=== PATIENT | female | born 1960 | race Caucasian/White ===

== ENCOUNTER 2017-02-10 16:42 | Emergency (ER) | payer OTHER ==
[~2017-02-10] VITALS: Ht 157.5 cm; Wt 63.6 kg
[2017-02-10 16:47] VITALS: Ht 157.5 cm; Wt 63.6 kg
[2017-02-10] MEDS ORDERED: HYDROCODONE/APAP (5/325) TAB PO ONE (19:00)
--- NOTE | 2017-02-10 19:16 | ERD ---
ER Documentation Chief Complaint Date/Time DATE: 02/10/17 TIME: 19:13 Chief Complaint BROUGHT IN VIA EMS DUE TO MECHANICAL FALL AND C/O BACK PAIN HPI This 56-year-old female who presents the emergency department today with her friend from [employer] complaining of headache, neck pain, back pain and right shoulder pain after sustaining a fall earlier this evening. Patient was at a restaurant when she slipped on a grape and fell backwards and hit her head. Denies any loss of consciousness or nausea or vomiting however she states she feels dizzy. She has not taken any medication for the pain. Denies any fevers or chills, blurred vision ROS All systems reviewed and are negative except as per history of present illness. Medications Home Meds Active Scripts Acetaminophen* (Tylophen*) 500 Mg Capsule, 1 CAP PO Q6H Y for PAIN AND OR ELEVATED TEMP, #30 CAP Prov:MCKINLEY RITCHIE PA-C 02/10/17 Tramadol HCl (Tramadol HCl) 50 Mg Tablet, 50 MG PO Q4 Y for PAIN, #20 TAB Prov:MCKINLEY RITCHIE PA-C 02/10/17 PMhx/Soc Medical and Surgical Hx: pt denies Medical Hx, pt denies Surgical Hx History of Surgery: No Anesthesia Reaction: No Hx Neurological Disorder: No Hx Respiratory Disorders: No Hx Cardiac Disorders: No Hx Psychiatric Problems: No Hx Miscellaneous Medical Probl: No Hx Alcohol Use: No Hx Substance Use: No Hx Tobacco Use: No Smoking Status: Never smoker Physical Exam Vitals Vital Signs Date Time Temp Pulse Resp B/P Pulse Ox O2 Delivery O2 Flow Rate FiO2 02/10/17 16:47 98.2 76 14 132/74 98 Physical Exam Const: Sitting in wheelchair, no acute distress Head: Atraumatic. No evidence of hematoma Eyes: Normal Conjunctiva. Right eye with pupillary dilation. Left eye PERRLA. EOM intact. ENT: Ears TMs normal. No hemotympanum. Nose no epistaxis. Throat no erythema no exudate Neck: Full range of motion..~ No meningismus. Tenderness palpation midline and bilateral paraspinal Resp: Clear to auscultation bilaterally Cardio: Regular rate and rhythm, no murmurs Abd: Soft, non tender, non distended. Normal bowel sounds Skin: No petechiae or rashes Back: Thoracic and lumbar spine midline tenderness and bilateral paraspinals. Pulses 2+. Distal neurovascularly intact. MSK: Right shoulder no obvious deformity. No effusion. No ecchymosis. Tenderness palpation diffusely over right shoulder. Nontender humerus. Full active range of motion with pain. Pulses 2+. Distal neurovascularly intact. Neur: Awake and alert Psych: Normal Mood and Affect Results 24 hrs Current Medications Medications (Trade) Dose Ordered Sig/Wendy Route PRN Reason Start Time Stop Time Status Last Admin Dose Admin Acetaminophen/ Hydrocodone Bitart (Beasley (5/325)) 1 tab ONCE ONCE PO 02/10/17 19:00 02/10/17 19:01 DC 02/10/17 19:06 DIAGNOSTIC IMAGING REPORT Patient: YESSY MCADAMS : 1960 Age: 56 Sex: F MR #: [id number] DOS: 02/10/17 0000 Ordering MD: MCKINLEY RITCHIE PA-C Location: [facility] Room/Bed: PROCEDURE: CT Brain without contrast. CLINICAL INDICATION: Pain status post trauma TECHNIQUE: A CT of the brain was performed on a [employer] 64-slice CT scanner utilizing axial imaging from the skull base through the vertex without IV contrast. Multiplanar reformatted images were made. Images were reviewed on a PACS workstation. The CTDIvol is 44.19 mGy and the DLP is 720.23 mGycm. One of the following 3 dose reduction techniques were used: Automated exposure control; adjustment of the mA and/or kV according to patient size; or use of iterative reconstruction technique. COMPARISON: None available FINDINGS: There is no intracranial hemorrhage, mass effect, or midline shift. No extra- axial fluid collection is seen. The ventricles and sulci are normal in size and configuration. The density of the brain is normal, and the aguilar white matter differentiation appears well-preserved. The visualized scalp and calvarium are normal. The bilateral orbits are are remarkable for a normal left lens and degenerative right lens and correlate with prior cataract surgery. 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 The bilateral paranasal sinuses, mastoid air cells and middle ear cavities are clear. IMPRESSION: 1. No evidence of acute intracranial hemorrhage, infarcts or acute intracranial pathology. 2. Normal noncontrast brain CT. RPTAT: HDC .Debbie Vanessa MD, Date Time Electronically viewed and signed by .Debbie Vanessa MD, MD on 02/10/2017 19: 25 .C/ CC: MCKINLEY RITCHIE PA-C DIAGNOSTIC IMAGING REPORT Patient: YESSY MCADAMS : 1960 Age: 56 Sex: F MR #: [id number] DOS: 02/10/17 0000 Ordering MD: MCKINLEY RITCHIE PA-C Location: [facility] Room/Bed: PROCEDURE: XR Lumbar Spine. CLINICAL INDICATION: Trauma due to a fall. Back pain. TECHNIQUE: Three views. AP, lateral and cone-down lateral view of the lumbar spine were obtained. COMPARISON: No prior studies are available for comparison. FINDINGS: There is grade 1 anterolisthesis at L4-5 measuring 0.6 cm. Alignment is otherwise normal. There is no fracture. There is no lytic or blastic lesion. There are degenerative changes with hypertrophy of the facet joints at L4-5 and L5-S1. Surgical clips are present in the right upper quadrant of the abdomen. IMPRESSION: 1. Grade 1 anterolisthesis at L4-5 measuring 0.6 cm. 2. Degenerative changes L4-5 and L5-S1. 3. Prior right upper quadrant abdomen surgery. 4. No fracture. RPTAT: QQ .Ja Olivo MD, MD Date Time Electronically viewed and signed by .Ja Olivo MD, on 02/10/2017 20:15 .R/ CC: MCKINLEY RITCHIE PA-C DIAGNOSTIC IMAGING REPORT Patient: YESSY MCADAMS : 1960 Age: 56 Sex: F MR #: [id number] DOS: 02/10/17 0000 Ordering MD: MCKINLEY RITCHIE PA-C Location: [facility] Room/Bed: PROCEDURE: XR Right Shoulder. CLINICAL INDICATION: Trauma due to a fall. Right shoulder pain. TECHNIQUE: Three views. Frontal internal rotation, frontal external rotation , and oblique. COMPARISON: No prior study is available for comparison. FINDINGS: There is no fracture or dislocation. The soft tissues are normal. Articular surfaces are intact. There is no lytic or blastic lesion. There is no radiopaque foreign body. IMPRESSION: 1. Normal images of the right shoulder. RPTAT: QQ .aJ Olivo MD, Date Time Electronically viewed and signed by .Ja Olivo MD, on 02/10/2017 20:15 DIAGNOSTIC IMAGING REPORT Patient: YESSY MCADAMS : 1960 Age: 56 Sex: F MR #: [id number] DOS: 02/10/17 0000 Ordering MD: MCKINLEY RITCHIE PA-C Location: [facility] Room/Bed: PROCEDURE: XR Thoracic Spine. CLINICAL INDICATION: Trauma due to a fall. Back pain. TECHNIQUE: Three views. Frontal, lateral, and lateral swimmers. COMPARISON: None available FINDINGS: There is normal stature and alignment of the vertebrae. There is no fracture. There is no lytic or blastic lesion. The disk height is normal throughout. Mild degenerative changes with small osteophytes are present in the mid thoracic spine. Surgical clips are present in the right upper quadrant of the abdomen. IMPRESSION: 1. Mild degenerative changes of the mid thoracic spine. 2. Prior right upper quadrant abdomen surgery. 3. Otherwise unremarkable images of the thoracic spine. RPTAT: QQ .Ja Olivo MD, Date Time Electronically viewed and signed by .Ja Olivo MD, on 02/10/2017 20:16 .R/ CC: MCKINLEY RITCHIE PA-C Procedures/MDM This a 56-year-old female who presented to the emergency department today complaining of headache, back pain and right shoulder pain after a mechanical fall earlier this evening. On physical exam patient's right pupil was dilated. Patient was unsure if this was abnormal for her or not. Given patient's complaint of dizziness, hitting her head and her abnormal pupil I did obtain a head CT as well as a cervical spine CT and plain films of the thoracic, lumbar spine and right shoulder Head CT noncontrast shows no evidence of acute intracranial hemorrhage, infarcts or intracranial pathology there is no mass-effect or midline shift Cervical spine CT shows mild degenerative changes of the facet joints at C6 and 7 and C7 and T1 on the right and C5 and 6 and 6 and 7 on the left. There is no fracture dislocation. Right shoulder is unremarkable Thoracic spine shows mild degenerative changes of the midthoracic spine. There are small osteophytes present. There is prior right upper quadrant abdomen surgery. Otherwise unremarkable Lumbar spine images show grade 1 anterolisthesis at L4 and 5 measuring 0.6 cm. There are degenerative changes at L4 and 5 and L5 and S1. Alignment is otherwise normal there is no acute fracture dislocation. Patient symptoms at this time is consistent with strain versus sprain versus contusion secondary to mechanical fall She was given Beasley here in the emergency department. Patient will be given a prescription for tramadol and Tylenol for home At this time the patient is stable for discharge and outpatient management. Patient should follow up with their PCP in the next 1-2 days. They may return to the emergency department sooner for any persistent or worsening of symptoms. Patient understood and agreed with the plan. Departure Diagnosis: Primary Impression: Fall Encounter type: initial encounter Qualified Code: W19.XXXA - Fall, initial encounter Condition: Fair MCKINLEY RITCHIE PA-C Feb 10, 2017 19:16
--- NOTE | 2017-02-10 19:26 | RADRPT ---
PROCEDURE: CT Brain without contrast. CLINICAL INDICATION: Pain status post trauma TECHNIQUE: A CT of the brain was performed on a [employer] 64-slice CT scanner utilizing axial imaging from the skull base through the vertex without IV contrast. Multiplanar reformatted images were made. Images were reviewed on a PACS workstation. The CTDIvol is 44.19 mGy and the DLP is 720 .23 mGycm. One of the following 3 dose reduction techniques were used: Automated exposure control; adjustment of the mA and/or kV according to patient size; or use of iterative reconstruction technique. COMPARISON: None available FINDINGS: There is no intracranial hemorrhage, mass effect, or midline shift. No extra-axial fluid collection is seen. The ventricles and sulci are normal in size and configuration. The density of the brain is normal, and the aguilar white matter differentiation appears well-preserved. The visualized scalp and calvarium are normal. The bilateral orbits are are remarkable for a normal left lens and degenerative right lens and correlate with prior cataract surgery. 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 The bilateral paranasal sinuses, mastoid air cells and middle ear cavities are clear. IMPRESSION: 1. No evidence of acute intracranial hemorrhage, infarcts or acute intracranial pathology. 2. Normal noncontrast brain CT. RPTAT: HDC .Debbie Vanessa MD, Date Time Electronically viewed and signed by .Debbie Vanessa MD, on 02/10/2017 19:25 .C/
--- NOTE | 2017-02-10 19:27 | RADRPT ---
PROCEDURE: CT Cervical Spine without contrast. CLINICAL INDICATION: Trauma due to a fall. Neck pain. TECHNIQUE: Helical axial sections were obtained through the cervical spine without intravenous con trast enhancement. Sagittal and coronal reformatted images were accomplished using the data from th e axial images. Total exam DLP is 587.69 mGy-cm. CTDIvol is 22.34 mGy. One or more of the followi ng dose reduction techniques were used: Automated exposure control, adjustment of the mA and/or kV a ccording to patient size, use of iterative reconstruction technique. COMPARISON: No prior studies are available for comparison. FINDINGS: There is normal stature and alignment of the vertebrae. There is no fracture. The disk height is normal. There are mild degenerative changes of the facet joints at C6-7 and C7-T 1 on the right and at C5-6 and C6-7 on the left. There is no lytic or blastic lesion. The paravertebral soft tissues are normal. IMPRESSION: 1. Mild degenerative change. 2. No fracture. 3. Otherwise normal CT scan of the cervical spine. RPTAT: QQ .Ja Olivo MD, MD Date Time Electronically viewed and signed by .Ja Olivo MD, MD on 02/10/2017 19:27 .R/
--- NOTE | 2017-02-10 20:16 | RADRPT ---
PROCEDURE: XR Lumbar Spine. CLINICAL INDICATION: Trauma due to a fall. Back pain. TECHNIQUE: Three views. AP, lateral and cone-down lateral view of the lumbar spine were obtained. COMPARISON: No prior studies are available for comparison. FINDINGS: There is grade 1 anterolisthesis at L4-5 measuring 0.6 cm. Alignment is otherwise normal. There is no fracture. There is no lytic or blastic lesion. There are degenerative changes with hypertrophy of the facet joints at L4-5 and L5-S1. Surgical clips are present in the right upper quadrant of the abdomen. IMPRESSION: 1. Grade 1 anterolisthesis at L4-5 measuring 0.6 cm. 2. Degenerative changes L4-5 and L5-S1. 3. Prior right upper quadrant abdomen surgery. 4. No fracture. RPTAT: QQ .Ja Olivo MD, MD Date Time Electronically viewed and signed by .Ja Olivo MD, on 02/10/2017 20:15 .R/
--- NOTE | 2017-02-10 20:16 | RADRPT ---
PROCEDURE: XR Right Shoulder. CLINICAL INDICATION: Trauma due to a fall. Right shoulder pain. TECHNIQUE: Three views. Frontal internal rotation, frontal external rotation, and oblique. COMPARISON: No prior study is available for comparison. FINDINGS: There is no fracture or dislocation. The soft tissues are normal. Articular surfaces are intact. There is no lytic or blastic lesion. There is no radiopaque foreign body. IMPRESSION: 1. Normal images of the right shoulder. RPTAT: QQ .Ja Olivo MD, Date Time Electronically viewed and signed by .Ja Olivo MD, on 02/10/2017 20:15 .R/
--- NOTE | 2017-02-10 20:17 | RADRPT ---
PROCEDURE: XR Thoracic Spine. CLINICAL INDICATION: Trauma due to a fall. Back pain. TECHNIQUE: Three views. Frontal, lateral, and lateral swimmers. COMPARISON: None available FINDINGS: There is normal stature and alignment of the vertebrae. There is no fracture. There is no lytic or blastic lesion. The disk height is normal throughout. Mild degenerative changes with small osteophytes are present in the mid thoracic spine. Surgical clips are present in the right upper quadrant of the abdomen. IMPRESSION: 1. Mild degenerative changes of the mid thoracic spine. 2. Prior right upper quadrant abdomen surgery. 3. Otherwise unremarkable images of the thoracic spine. RPTAT: QQ .Ja Olivo MD, MD Date Time Electronically viewed and signed by .Ja Olivo MD, MD on 02/10/2017 20:16 .R/
[2017-02-10] MEDS ORDERED: TRAM50TA2 PO (20:31)
[2017-02-10] MEDS ORDERED: ACET500C5 PO (20:32)
[2017-02-10 21:03] VITALS: BP 128/74; PULSE 91; RESP 16; TEMP 98.5
== END 2017-02-10 21:04 | disposition home or self-care (01) ==
LOC: FTE 16:42
DX: S09.90XA Unspecified injury of head, initial encounter (principal); S19.9XXA Unspecified injury of neck, initial encounter; S39.92XA Unspecified injury of lower back, initial encounter; S49.91XA Unspecified injury of right shoulder and upper arm, initial encounter; R51 Headache; W01.0XXA Fall on same level from slipping, tripping and stumbling without subsequent striking against object, initial encounter; Y92.511 Restaurant or cafe as the place of occurrence of the external cause
CPT/HCPCS: 70450; 72072; 72100; 72125; 73030; Z7502; Z7610